=== PATIENT | male | born 1955 | race Caucasian/White ===

== ENCOUNTER 2018-04-02 09:35 | Inpatient (IN) | payer MEDICAID, OTHER ==
[~2018-04-02] VITALS: Ht 175.3 cm; Wt 82.2 kg
[2018-04-02 11:05] LABS: Basophils # (auto) 0.1 uL; Basophils % (auto) 1.2 % (0.0-2.0); Eosinophils # (auto) 0.1 uL; Eosinophils % (auto) 2.5 % (0.0-7.0); Hematocrit 47.5 % (41.0-53.0); Hemoglobin 16.4 g/dL (13.5-17.5); Lymphocytes # (auto) 1.5 uL; Lymphocytes % (auto) 26.4 % (10.0-50.0); Mean Corpuscular Hemoglobin 32.1 pg (28.0-32.0); Mean Corpuscular Hgb Conc. 34.5 g/dL (32.0-36.0); Mean Corpuscular Volume 93.1 fL (80.0-100.0); Monocytes # (auto) 0.5 uL; Monocytes % (auto) 9.3 % (0.0-12.0); Neutrophils # (auto) 3.6 uL; Neutrophils % (auto) 60.6 % (37.0-80.0); Nucleated Red Blood Cells % 0.1 %; Platelet Count (auto) 231 10^3/uL (140-450); White Blood Cell 5.9 10^3/uL (4.4-10.8)
[2018-04-02 11:30] LABS: Alanine Aminotransferase 52 U/L (16-61); Albumin 4.3 g/dL (3.4-5.0); Alkaline Phosphatase 78 U/L (45-117); Anion Gap 7 (5-15); Aspartate Aminotransferase 18 U/L (15-37); BUN/Creatinine Ratio 8.8; Bilirubin, Total 2.7 mg/dL (0.2-1.0); Blood Urea Nitrogen 9 mg/dL (7-18); Carbon Dioxide 27 mmol/L (21-32); Chloride 107 mmol/L (98-107); GFR African American 95 mL/min; GFR Non-African American 78 mL/min; Glucose 96 mg/dL (74-106); Magnesium 2.7 mg/dL (1.6-2.6); Potassium 4.8 mmol/L (3.5-5.1); Sodium 141 mmol/L (136-145); Total Protein 7.6 g/dL (6.4-8.2)
[2018-04-02] MEDS ORDERED: ONDANSETRON HCL 4 MG/2 ML VIAL IV PRN (15:15)
[2018-04-02] MEDS ORDERED: ALUM & MAG HYDROX-SIMETH LIQ(MAALOX) 30 ML PO ONE (15:15)
[2018-04-02] MEDS ORDERED: MORPHINE SULF(PF) 0.5MG/ML 10ML VIAL IV PRN ×2 (15:15)
[2018-04-02] MEDS ORDERED: LORazepam 0.5 MG TAB PO PRN (15:15)
[2018-04-02] MEDS ORDERED: ZOLPIDEM TARTRATE 5 MG TAB PO PRN (15:15)
[2018-04-02] MEDS ORDERED: ACETAMINOPHEN 325 MG TAB PO PRN (15:15)
[2018-04-02] MEDS ORDERED: NITROGLYCERIN 0.4 MG SL TAB SL PRN ×2 (15:15)
[2018-04-02] MEDS ORDERED: PANTOPRAZOLE 40 MG TAB PO ONE (15:30)
[2018-04-02] MEDS ORDERED: POTASSIUM CHL 10 Meq TABLET PO ONE (15:30)
[2018-04-02] MEDS ORDERED: FUROSEMIDE 40 MG TAB PO ONE (15:30)
[2018-04-02 20:20] VITALS: BP 146/77
[2018-04-02] MEDS ORDERED: cloNIDine HCL 0.1 MG TAB PO PRN (20:45)
[2018-04-02] MEDS: ENALAPRIL MALEATE 2.5 MG TAB PO SCH (21:26)
[2018-04-02] MEDS: ATORVASTATIN 20 MG TAB PO SCH (21:26)
[2018-04-02] MEDS: SODIUM CHLOR 0.9% PF (SALINE LOCK) 10ML VIAL/SYR IV SCH (21:26)
[2018-04-02] MEDS ORDERED: ALL300T PO (23:00)
[2018-04-02] MEDS ORDERED: OME20T PO (23:00)
[2018-04-03] VITALS (7 sets, daily range): BP systolic 121–134; BP diastolic 64–81
[2018-04-03] MEDS: SODIUM CHLOR 0.9% PF (SALINE LOCK) 10ML VIAL/SYR IV SCH ×3 (06:06→22:43)
[2018-04-03 06:33] LABS: Basophils # (auto) 0.1 uL; Basophils % (auto) 0.9 % (0.0-2.0); Eosinophils # (auto) 0.1 uL; Hematocrit 47.6 % (41.0-53.0); Hemoglobin 16.8 g/dL (13.5-17.5); Lymphocytes # (auto) 1.4 uL; Lymphocytes % (auto) 22.5 % (10.0-50.0); Mean Corpuscular Hemoglobin 32.7 pg (28.0-32.0); Mean Corpuscular Hgb Conc. 35.4 g/dL (32.0-36.0); Mean Corpuscular Volume 92.4 fL (80.0-100.0); Monocytes # (auto) 0.7 uL; Monocytes % (auto) 11.1 % (0.0-12.0); Neutrophils # (auto) 3.9 uL; Neutrophils % (auto) 63.5 % (37.0-80.0); Nucleated Red Blood Cells % 0.1 %; Platelet Count (auto) 210 10^3/uL (140-450); Red Blood Cells 5.15 10^6/uL (4.5-5.90); Red Cell Distribution Width 13.2 % (11.8-14.3); White Blood Cell 6.1 10^3/uL (4.4-10.8)
[2018-04-03 07:02] LABS: Alanine Aminotransferase 49 U/L (16-61); Albumin 4.3 g/dL (3.4-5.0); Alkaline Phosphatase 71 U/L (45-117); Anion Gap 8 (5-15); Aspartate Aminotransferase 16 U/L (15-37); BUN/Creatinine Ratio 13.2; Bilirubin, Total 4.3 mg/dL (0.2-1.0); Blood Urea Nitrogen 14 mg/dL (7-18); Calcium 9.3 mg/dL (8.5-10.1); Carbon Dioxide 29 mmol/L (21-32); Chloride 102 mmol/L (98-107); Cholesterol 121 mg/dL (< 200); GFR African American 91 mL/min; GFR Non-African American 75 mL/min; Glucose 97 mg/dL (74-106); HDL Cholesterol 26 mg/dL (40-59); LDL Cholesterol 85 mg/dL (< 100); Magnesium 2.8 mg/dL (1.6-2.6); Potassium 4.4 mmol/L (3.5-5.1); Sodium 139 mmol/L (136-145); Total Protein 7.3 g/dL (6.4-8.2); Triglycerides 183 mg/dL (< 150)
[2018-04-03] MEDS: DOCUSATE SOD 100 MG CAP PO SCH (10:00)
[2018-04-03] MEDS ORDERED: CLOPIDOGREL BISULFATE 75 MG TAB PO SCH (10:00)
[2018-04-03] MEDS ORDERED: FUROSEMIDE 40 MG TAB PO SCH (10:00)
[2018-04-03] MEDS: POTASSIUM CHL 10 Meq TABLET PO SCH (10:58)
[2018-04-03] MEDS: ASPirin 81 mg TAB PO SCH (10:58)
[2018-04-03] MEDS: ENALAPRIL MALEATE 2.5 MG TAB PO SCH ×2 (10:58→22:42)
[2018-04-03 12:57] LABS: Urine Bacteria NONE SEEN /hpf (None Seen); Urine Blood Negative /uL (Negative); Urine Mucus FEW (None Seen); Urine WBC <1 /hpf (0 - 3)
[2018-04-03] MEDS: PANTOPRAZOLE 40 MG TAB PO SCH (13:36)
[2018-04-03] MEDS ORDERED: NITROGLYCERIN 0.4 MG SL TAB SL ONE (14:59)
[2018-04-03] MEDS ORDERED: METOPROLOL TARTRATE 1MG/1ML-5ML VIAL IV ONE (14:59)
[2018-04-03] MEDS ORDERED: IOHEXOL 350 MG/ML 100ML IJ ONE (15:11)
[2018-04-03] MEDS: ATORVASTATIN 20 MG TAB PO SCH (22:42)
[2018-04-04 05:00] VITALS: BP 117/72
[2018-04-04] MEDS: SODIUM CHLOR 0.9% PF (SALINE LOCK) 10ML VIAL/SYR IV SCH (06:00)
[2018-04-04 08:00] VITALS: BP 110/71
[2018-04-04 08:42] LABS: BUN/Creatinine Ratio 14.9; Calcium 9.3 mg/dL (8.5-10.1); Magnesium 2.9 mg/dL (1.6-2.6); Potassium 4.3 mmol/L (3.5-5.1)
[2018-04-04 09:00] VITALS: BP 110/71
[2018-04-04] MEDS: ASPirin 81 mg TAB PO SCH (09:31)
[2018-04-04] MEDS: PANTOPRAZOLE 40 MG TAB PO SCH (09:31)
[2018-04-04] MEDS: ENALAPRIL MALEATE 2.5 MG TAB PO SCH (09:32)
[2018-04-04] MEDS: DOCUSATE SOD 100 MG CAP PO SCH (09:32)
[2018-04-04] MEDS: POTASSIUM CHL 10 Meq TABLET PO SCH (09:32)
== END 2018-04-04 12:20 | disposition home or self-care (01) | DRG 198 ==
LOC: ER 09:35 → TELE 09:36 → TELE-WESTW 20:27
PROVIDERS: ADMIT Internal Medicine; ATTEND Internal Medicine
DX: R07.9 Chest pain, unspecified (principal); I25.10 Atherosclerotic heart disease of native coronary artery without angina pectoris; I50.43 Acute on chronic combined systolic (congestive) and diastolic (congestive) heart failure; E83.41 Hypermagnesemia; J98.4 Other disorders of lung; N18.3 Chronic kidney disease, stage 3 (moderate); M10.9 Gout, unspecified; J44.9 Chronic obstructive pulmonary disease, unspecified; K21.9 Gastro-esophageal reflux disease without esophagitis; E66.9 Obesity, unspecified; I71.9 Aortic aneurysm of unspecified site, without rupture; N18.2 Chronic kidney disease, stage 2 (mild); Z83.3 Family history of diabetes mellitus; Z86.79 Personal history of other diseases of the circulatory system; Z68.26 Body mass index [BMI] 26.0-26.9, adult
CPT/HCPCS: 36415; 71046; 80048; 80053; 80061; 81001; 83735; 83880; 84484; 85025; 93005; 96374